=== PATIENT | male | born 1965 | race Caucasian/White ===

== ENCOUNTER 2018-12-14 19:30 | Emergency (ER) | payer SELFPAY ==
[~2018-12-14] VITALS: Ht 185.4 cm; Wt 63.4 kg
[~2018-12-14 19:30] MED LIST: BACTRIM DS1 TAB OR; CLINDAMYCIN150 MG PO; LORTAB5 OR; NO CURRENT MEDS; ULTRAM50 MG PO
[2018-12-14] MEDS ORDERED: PREDNISONE20 MG PO (20:39)
[2018-12-14] MEDS ORDERED: ZITHROMAX500 MG PO (20:39)
[2018-12-14 20:40] VITALS: BP 105/67
== END 2018-12-14 20:40 | disposition home or self-care (01) | DRG 153 ==
LOC: ED 19:30
DX: J02.0 Streptococcal pharyngitis (principal); R23.4 Changes in skin texture; F17.200 Nicotine dependence, unspecified, uncomplicated

== ENCOUNTER 2019-09-02 | Emergency (ER) | payer SELFPAY ==
[~2019-09-02] MED LIST changes: +PREDNISONE20 MG PO; +ZITHROMAX500 MG PO
[2019-09-02 09:22] LABS: HEMATOCRIT 44.3 % (39.0-50.0); HEMOGLOBIN 14.9 g/dl (14.0-18.0); IMMATURE GRANULOCYTES 0.3 % (0.0-5.0); MEAN CORPUSCULAR HGB 30.6 pG CALC (26.0-32.0); MEAN CORPUSCULAR HGB CONC 33.6 g/dL CAL (32.0-36.0); NEUT# 4.2 thou/uL (1.82-7.42); RED BLOOD COUNT 4.87 mill/uL (4.70-6.10); RED CELL DISTRI WIDTH 13.1 % (11.5-15.5)
[2019-09-02 09:57] LABS: ALBUMIN 4.5 g/dL (3.2-5.0); ALKALINE PHOSPHATASE 75 u/l (38-126); ANION GAP 12 (6-22 (CALC)); BUN 16 mg/dL (9-20); BUN/CREATININE RATIO 15 (12-20 (CALC)); CARBON DIOXIDE 24 mmol/l (22-30); CHLORIDE 104 mmol/l (95-108); GFR > 60 ML/MIN (>=60 (CALC)); GFR FOR AFR.AMER. > 60 ML/MIN (>=60 (CALC)); LIPASE 73 u/l (23-300); POTASSIUM 4.1 mmol/l (3.5-5.1); SGOT/AST 28 u/l (17-59); SODIUM 136 mmol/l (137-146); TOTAL PROTEIN 7.5 g/dL (6.3-8.2)
[2019-09-02 09:58] LABS: BILIRUBIN, TOTAL 0.6 mg/dL (0.0-1.4)
[2019-09-02 10:16] LABS: URINE BILIRUBIN - DIPSTICK NEGATIVE (NEGATIVE); URINE BLOOD DIPSTICK TRACE-INTACT (NEGATIVE); URINE COLOR YELLOW; URINE GLUCOSE - DIPSTICK NEGATIVE (NEGATIVE); URINE KETONE TRACE mg/dL (NEGATIVE); URINE LEUK ESTERASE NEGATIVE (NEGATIVE); URINE NITRITE - DIPSTICK NEGATIVE (Negative); URINE PROTEIN - DIPSTICK NEGATIVE (NEG-TRACE); URINE SPECIFIC GRAVITY >=1.030; URINE UROBILINOGEN - DIPSTICK 0.2 E.U./dL (0.2)
[2019-09-02] MEDS ORDERED: MOTRIN400 MG PO (10:40)
[2019-09-02] MEDS ORDERED: VOLTAREN1%GEL TOP (10:40)
== END 2019-09-02 11:01 | disposition home or self-care (01) | DRG 552 ==
PROVIDERS: Family Medicine
DX: M54.5 Low back pain (principal); R10.32 Left lower quadrant pain; R91.8 Other nonspecific abnormal finding of lung field; F17.210 Nicotine dependence, cigarettes, uncomplicated

== ENCOUNTER 2024-05-12 21:07 | Emergency (ER) | payer SELFPAY ==
[~2024-05-12] VITALS: Ht 185.4 cm; Wt 72.0 kg
[~2024-05-12 21:07] MED LIST changes: +ACYCLOVIR800 MG PO; +ALBUTEROL SUL0.083 % IN; +BACTRIM DS1 TAB PO; +CEFDINIR300 MG PO; +MOTRIN400 MG PO; +VOLTAREN1%GEL TOP
[2024-05-12] MEDS ORDERED: IPRATROPIUM-Albuterol 0.5MG-2.5MG/3 ML NEB ONE ×2 (21:15→23:00)
[2024-05-12 22:00] VITALS: BP 149/96
[2024-05-12 22:31] VITALS: BP 145/129
[2024-05-12] MEDS ORDERED: PREDNISONE50 MG PO (22:49)
[2024-05-12] MEDS ORDERED: PROAIR RES108 MCG/AC PO (22:49)
[2024-05-12 23:00] VITALS: BP 140/84
[2024-05-12 23:31] VITALS: BP 151/104
[2024-05-13] VITALS: BP 127/85
[2024-05-13 00:16] VITALS: BP 127/85
== END 2024-05-13 00:16 | disposition home or self-care (01) | DRG 153 ==
LOC: ED 21:07
DX: J06.9 Acute upper respiratory infection, unspecified (principal); Z20.822 Contact with and (suspected) exposure to COVID-19

== ENCOUNTER 2024-05-19 12:00 | Observation (INO) | payer SELFPAY ==
[2024-05-19] VITALS (17 sets, daily range): BP systolic 126–176; BP diastolic 84–114
[~2024-05-19] VITALS: Ht 185.4 cm; Wt 67.6 kg
[~2024-05-19 12:00] MED LIST changes: +PREDNISONE50 MG PO; +PROAIR RES108 MCG/AC PO
--- NOTE | 2024-05-19 12:14 | NUR ---
Pt brought back to rm 10 via wheelchair, accompanied by spouse
[2024-05-19] MEDS ORDERED: methylPREDNISolone SODIUM SUCC 125 MG/2 ML SDV IV ONE (12:15)
[2024-05-19] MEDS ORDERED: MAGNESIUM SULFATE HEPTAHYDRATE 50 ML IV ONE (12:15)
[2024-05-19] MEDS ORDERED: IPRATROPIUM-Albuterol 0.5MG-2.5MG/3 ML NEB ONE ×3 (12:15)
[2024-05-19 12:57] LABS: BASO% 0.1 % (0-3); IMMATURE GRANULOCYTES 1.4 % (0.0-5.0); LYMPH% 16.3 % (15-41); MEAN CELL VOLUME 94.5 fL CALC (80.0-100.0); MEAN CORPUSCULAR HGB CONC 32.8 g/dL CAL (32.0-36.0); MONO% 11.1 % (2-13); NEUT# 5.91 thou/uL (1.82-7.42); NEUT% 69.1 % (42-76); RED BLOOD COUNT 5.09 mill/uL (4.70-6.10)
[2024-05-19 13:06] LABS: HEMATOCRIT 48.1 % (39.0-50.0); HEMOGLOBIN 15.8 g/dl (14.0-18.0)
--- NOTE | 2024-05-19 13:16 | NUR ---
Patient resting comfortably in stretcher.
[2024-05-19 13:18] LABS: ALBUMIN 4.1 g/dL (3.2-5.0); ALKALINE PHOSPHATASE 73 u/l (38-126); ANION GAP 9 (6-22 (CALC)); BUN 21 mg/dL (9-20); BUN/CREATININE RATIO 24 (12-20 (CALC)); CARBON DIOXIDE 29 mmol/l (22-30); CHLORIDE 104 mmol/l (95-108); CREATININE 0.9 mg/dL (0.7-1.3); ESTIMATED GFR 98 ML/MIN (>=90 (CALC)); POTASSIUM 3.6 mmol/l (3.5-5.1); SGOT/AST 28 u/l (17-59); SODIUM 138 mmol/l (137-146); TOTAL PROTEIN 6.8 g/dL (6.3-8.2)
[2024-05-19 13:23] LABS: BILIRUBIN, TOTAL 0.5 mg/dL (0.2-1.3)
--- NOTE | 2024-05-19 14:02 | NUR ---
Pt received duo neb treatments, tolerated well. Reports improvement in breathing.
[2024-05-19 14:20] LABS: URINE BILIRUBIN - DIPSTICK Negative (NEGATIVE); URINE BLOOD DIPSTICK Negative (NEGATIVE); URINE GLUCOSE - DIPSTICK Negative (NEGATIVE); URINE KETONE Negative (NEGATIVE); URINE LEUK ESTERASE Negative (NEGATIVE); URINE NITRITE - DIPSTICK Negative (Negative); URINE PROTEIN - DIPSTICK Negative (NEG-TRACE); URINE SPECIFIC GRAVITY >=1.030; URINE UROBILINOGEN - DIPSTICK 0.2 E.U./dL (0.2)
[2024-05-19 14:22] LABS: URINE COLOR Yellow
[2024-05-19] MEDS ORDERED: AZITHROMYCIN 500 MG in SODIUM CHLORIDE 0.9% 500 ML IV ONE (14:30)
[2024-05-19] MEDS ORDERED: MAGNESIUM HYDROXIDE 30 ML UDC PO PRN (14:50)
[2024-05-19] MEDS ORDERED: ACETAMINOPHEN 325 MG/TAB PO PRN (14:50)
[2024-05-19] MEDS ORDERED: ALBUTEROL SULFATE 8 GM INH IN PRN (14:50)
--- NOTE | 2024-05-19 14:53 | NUR ---
Initiated Zithromax infusion. Pt denies any complaints at this time.
--- NOTE | 2024-05-19 15:07 | NUR ---
Gave report to Med Surg, to JATIN Woods
[2024-05-19] MEDS ORDERED: IPRATROPIUM-Albuterol 0.5MG-2.5MG/3 ML NEB SCH (15:30)
[2024-05-19] MEDS ORDERED: amLODIPine BESYLATE 5 MG/TAB PO SCH (16:30)
[2024-05-19] MEDS ORDERED: Levofloxacin 750 mg Premix 150 ML IV SCH (17:00)
--- NOTE | 2024-05-19 17:01 | NUR ---
COULD BARELY STAY AWAKE TO COMPLETE ADMISSION ASSESSMENT BUT WAS ORIENTED AND ANSWERS QUESTIONS APPROPRIATELY WHEN AROUSED WITH STRONG TACTILE STIMULATION. SLEEPING IN SUPINE POSITION AT THIS TIME.
--- NOTE | 2024-05-19 20:00 | NUR ---
RECEIVED REPORT FROM DAY NURSE, PATIENT RESTING IN BED, EATING DINNER, PATIENT ON ROOM AIR, NON PRODUCTIVE COUGH, IV ON LAC G 18 PATENT FLUSHES WELL, HOOKED ON TELEMETRY, CALL LIGHT WITHIN REACHED.
[2024-05-19] MEDS ORDERED: ENOXAPARIN SODIUM 40 MG/0.4 ML SYR SC SCH (21:00)
[2024-05-19] MEDS ORDERED: methylPREDNISolone Sod Succ 40 MG/ML SDV IV SCH (21:00)
[2024-05-19] MEDS ORDERED: FLUTICASONE/SALMETEROL 250 MCG/50 MCG PER DOSE INH IN SCH (21:00)
[2024-05-20] VITALS (9 sets, daily range): BP systolic 105–145; BP diastolic 62–82
--- NOTE | 2024-05-20 00:32 | NUR ---
PATIENT RESTING IN BED, BREATHING EVEN UNLABORED, NO DISCOMFORTS NOTED AT THIS TIME, CALL LIGHT WITHIN REACHED.
--- NOTE | 2024-05-20 03:15 | NUR ---
YENNY RESTING IN BED, BREATHING UNLABORED. NO DISCOMFORTS NOTED AT THIS TIME, CALL LIGHT WITHIN REACHED.
--- NOTE | 2024-05-20 07:17 | NUR ---
PATIENT LYING IN BED WITH EYES CLOSED RESTING. BREATHING UNLABORED ON ROOM AIR. IV IN LAC SL;SITE CLEAN AND INTACT. TELE INTACT. NO SIGNS OF DISTRESS OR PAIN NOTED. PERSONAL ITEMS WELL CALL LIGHT WITHIN REACH. BED IN LOWEST POSITION. NO NEEDS AT THIS TIME. POC ONGOING.
--- NOTE | 2024-05-20 12:30 | NUR ---
PATIENT SITTING UP IN BED WATCHING TV. BREATHING UNLABORED ON 2L NC. TELE INTACT. IV LAC SL;SITE CLEAN AND INTACT. NO C/O OF PAIN OR N/D/V AT THIS TIME. PERSONAL ITEMS WELL CALL LIGHT WITHIN REACH. BED IN LOWEST POSITION. NO NEEDS AT THIS TIME. POC ONGOING.
--- NOTE | 2024-05-20 14:33 | NUR ---
PATIENT HAD AN EPISODE OF AN ANXIETY ATTACK AFTER AMBULATING TO BATHROOM. PT WAS TACHYCARDIC WITH LABORED BREATHING. O2 STAT OF 99, [place] OF 118 AND B/P OF 145/82. INFORMED AND AWARE;AWAITING ORDERS/RESPONSE FOR ANXIETY MEDICATION. RT CALLED AND GAVE PT BREATHING TREATMENT. RT STATED PT SAID HE HAS THESE EPISODES FREQUENTLY.
[2024-05-20] MEDS ORDERED: ALPRAZolam 0.5 MG/TAB PO PRN (15:25)
--- NOTE | 2024-05-20 16:45 | NUR ---
PATIENT LYING IN BED WITH EYES CLOSED RESTING. BREATHING UNLABORED ON 2L NC. TELE INTACT. IV IN LAC INFUSING FLUIDS PER EMAR;SITE CLEAN AND INTACT. NO SIGNS OF DISTRESS OR PAIN NOTED. PERSONAL ITEMS WELL CALL LIGHT WITHIN REACH. BED IN LOWEST POSITION. NO NEEDS AT THIS TIME. POC ONGOING.
--- NOTE | 2024-05-20 20:00 | NUR ---
RECEIVED REPORT FROM NURSE KRISTIN, PATIENT RESTING IN BED, AROUSABLE, ON O2 @ 2LPM VIA NC, DENIES PAIN AT THIS TIME,STILKL WITH NON PRODUCTIVE COUGH, ON TELMETRY. STATED MILD ANXIETY WILL MEDICATE, PATIENT ON O2 @ 2LPM VIA NC, NOT IN DISTRESS, CLEAR LUNG SOUNDS, LBM 05/18 REFUSED MOM STATED IF STILL NO BM TODAY WILL TAKE TOMORROW, CALL LIGHT IN REACHED.,
[2024-05-21 00:19] VITALS: BP 108/71
--- NOTE | 2024-05-21 01:01 | NUR ---
PATIENT RESTING IN BED, WITH EYES CLOSED, BREATHING EVEN UNLABORED CALL LIGHT WITHIN REACHED.
[2024-05-21 04:03] VITALS: BP 107/66
--- NOTE | 2024-05-21 04:55 | NUR ---
PATINET RESTING IN BED,EYES CLOSE,D ON O2 @ 2LPM VIA NC, NOTY IN DISTRESS, CALL LIGHT WITHIN REACHED.
[2024-05-21 06:07] LABS: ALBUMIN 3.5 g/dL (3.2-5.0); BILIRUBIN, TOTAL 0.4 mg/dL (0.2-1.3); CREATININE 0.9 mg/dL (0.7-1.3); MAGNESIUM 2.2 mg/dL (1.6-2.3); TOTAL PROTEIN 6.2 g/dL (6.3-8.2)
[2024-05-21 07:02] VITALS: BP 117/78
[2024-05-21 08:00] VITALS: BP 115/73
--- NOTE | 2024-05-21 09:24 | NUR ---
PT IS ALERT TIMES 4 AND MAKE HIS NEEDS KNOWN. PT IS ON 2 LITERS OF 02 VIA NASAL CANNULA. PT HAS A IV SITE TO LEFT A/C SITE IS CLEAN AND DRY WITH NO S/O INFECTION. PT IS AMBULATORY IN HIS ROOM WITH STANDBY ASSIST WITH STAFF TO GO TO THE BATHROOM. PT SKIN IS INTACT PT IS ON PO ABT WITH NO A/E NOTED AT THIS TIME. PT CALL ADAM AT REACH WITH ALL SAFETY MEASURES IN PLACE NURSING WILL CONTINUE TO MONITOR.
[2024-05-21 10:54] VITALS: BP 115/73
[2024-05-21] MEDS ORDERED: AMLODIPINE BESYL5 MG PO (11:02)
[2024-05-21] MEDS ORDERED: LEVOFLOXACIN500MG PO (11:03)
[2024-05-21] MEDS ORDERED: PREDNISONE10 MG PO (11:03)
[2024-05-21 12:00] VITALS: BP 118/78
--- NOTE | 2024-05-21 12:23 | NUR ---
PT IS ALERT TIMES 4 ADN CAN MAKE HIS NEEDS KNOWN. PT 02 HAS BEEN D/C PER DRY CLEANING CHECKER ORDERS. PT IS GETTING DISCHARGED ON THIS SHIFT. PT WAS EDUCATED WITH HIS FAMILY AT BEDSIDE ON THE DISCHARGE SUMMARY. PT AND FAMILY VERBALIZED UNDERSTANDING. PT HAS C/O PAIN AND PT SKIN REMAINS INTACT. PT HAD A SHOWER PRIOR TO DISCHARGE. PT AND HIS FAMILY LEFT THE HOSPITAL WITH HIS DISCHARGE SUMMARY AND ALL HIS PERSONAL BELONGINGS.
--- NOTE | 2024-05-21 14:02 | NUR ---
Discharge instructions given. Patient verbalizes understanding of same. Discharged in good condition via Wheelchair to Home with family. All belongings sent with pt. PT O2 WAS D/C PRIOR TO D/C SECONDARY TO HOLDING OVER 90% ON R/A. PT IV WAS REOMVED FROM HIS LEFT A/C PRIOR TO DISCHARGE SITE IS CLEAN AND DRY WITH NO S/O INFECTON.
== END 2024-05-21 13:17 | disposition home or self-care (01) | DRG 192 ==
LOC: ED 12:00 → MS2 14:36
PROVIDERS: Nurse Practitioner; Nurse Practitioner Family; ADMIT Internal Medicine; ATTEND Internal Medicine
DX: J44.1 Chronic obstructive pulmonary disease with (acute) exacerbation (principal); I10 Essential (primary) hypertension; T48.996A Underdosing of other agents primarily acting on the respiratory system, initial encounter; Z91.120 Patient's intentional underdosing of medication regimen due to financial hardship; Z87.891 Personal history of nicotine dependence; Z20.822 Contact with and (suspected) exposure to COVID-19
CPT/HCPCS: G0378; J0456; J1650; J3475